=== PATIENT | male | born 1955 | race Caucasian/White ===

== ENCOUNTER → 2017-10-01 | Outpatient (CLI) | payer BC ==
[~2017-10-01] MED LIST: AMLO-104 PO; ATOR20TA22 PO; CARV12.578 PO; FISH1CAP15 PO; FLU60SYR30 IM ONLY; GLIM4TAB50 PO; HYDR-2966 PO; HYDR12.561 PO; METF10002 PO; METXR500 PO; MULT-768 PO; OLME1TAB57 PO; OLME1TAB60 PO; OXYC-865 PO; PNEI IJ; SITA1TBM4 PO
[2017-10-01 17:12] LABS: PLATELET COUNT, AUTOMATED 216 K/uL (150-450)
--- NOTE | 2017-10-01 17:43 | RADIOLOGY IMAGING REPORT ---
FACILITY: [facility] [place] PATIENT NAME: Suman Bourgeois : 1955 MR: [id number] V: [id number] EXAM DATE: ORDERING PHYSICIAN: HARRIETT JOHNSON TECHNOLOGIST: Location: [facility] [place] Patient: Suman Bourgeois : 1955 Visit/Account:[id number] Date of Sevice: 10/01/2017 CHEST PA AND LAT HISTORY: hypoxia COMPARISON: None FINDINGS: Cardiomediastinal contours: Normal Lungs and pleura: Normal Bones/soft tissues: Normal Other findings: None significant IMPRESSION: 1. No acute cardiopulmonary disease. Report Dictated By: Grzegorz Egan MD at 10/01/2017 5:37 PM Report E-Signed By: Grzegorz Egan MD at 10/01/2017 5:38 PM WSN:[id number]
== END ==
LOC: LAB 16:41
PROVIDERS: ATTEND Internal Medicine
DX: R09.02 Hypoxemia (principal); I10 Essential (primary) hypertension; E66.9 Obesity, unspecified
CPT/HCPCS: 36415; 71046; 81001; 82043; 85025

== ENCOUNTER → 2017-10-09 | Outpatient (CLI) | payer BC ==
--- NOTE | 2017-10-12 18:33 | RADIOLOGY IMAGING REPORT ---
FACILITY: [facility] PATIENT NAME: PERCY MATAMOROS : [id number] MR: [id number] V: [id number] EXAM DATE: [id number] ORDERING PHYSICIAN: HARRIETT JOHNSON TECHNOLOGIST: George Gordon EXAMINATION:TWO-DIMENSIONAL ECHOCARDIOGRAPH REASON:HYPOXIA/HTN 2D Measurements (normal values in centimeters) LV endLV endRV endVent.LV PostAorticLeftPercent DiastolicSystolicDiastolicSeptumWallRootAtriumShortening (3.5-5.7)(0.9-2.6)(0.6-1.1)(0.6-1.1)(2.0-3.7)(1.9-4.0)(25-35%) [id number]% STROKE VOLUME: 70ml ESTIMATED EJECTION FRACTION:64% LEFT VENTRICLE: Normal size, moderate left ventricular hypertrophy without LVOT obstruction. Ejection fraction 60-65%. Grade 2 diastolic dysfunction. RIGHT VENTRICLE: Normal size & function. RIGHT ATRIUM: Normal size & function. LEFT ATRIUM: Normal size & function. AORTIC VALVE: Trileaflet, no evidence of significant stenosis or regurgitation. PULMONIC VALVE: Poorly visualized but no evidence of significant stenosis or regurgitation. MITRAL VALVE: Normal structure & function, no significant stenosis or regurgitation. TRICUSPID VALVE: Normal structure, no evidence of significant stenosis or regurgitation. PERICARDIUM: No evidence of effusion. EXTRACARDIAC SPACE: No evidence of pleural effusion. OVERALL IMPRESSION: 1. Ejection fraction 60-65%, with moderate LVH & Grade 2 diastolic dysfunction. 2. No hemodynamically significant valvular dysfunction. Dictated by: Camilo Cooney M.D. on 10/11/2017 at 7:23 Transcribed by: JAYSON on 10/12/2017 at 10:32 Approved by: Camilo Cooney M.D. on 10/12/2017 at 18:32 [facility]
== END ==
LOC: US 00:18
PROVIDERS: ATTEND Internal Medicine
DX: I50.30 Unspecified diastolic (congestive) heart failure (principal); I51.7 Cardiomegaly
CPT/HCPCS: C8929; Q9957

== ENCOUNTER → 2017-10-10 | Outpatient (CLI) | payer BC | LOC: RESP 01:46 | PROVIDERS: ATTEND Internal Medicine | DX: R09.02 Hypoxemia (principal); I10 Essential (primary) hypertension; E11.9 Type 2 diabetes mellitus without complications; E66.9 Obesity, unspecified | CPT/HCPCS: 94060; 94726; 94729 ==

== ENCOUNTER → 2017-11-08 | Outpatient (CLI) | payer BC | LOC: RESP 19:58 | PROVIDERS: ATTEND Internal Medicine | DX: R09.02 Hypoxemia (principal); I10 Essential (primary) hypertension; E11.9 Type 2 diabetes mellitus without complications; E66.9 Obesity, unspecified; G47.33 Obstructive sleep apnea (adult) (pediatric); G47.36 Sleep related hypoventilation in conditions classified elsewhere ==